=== PATIENT | male | born 1980 | race Caucasian/White ===

== ENCOUNTER 2016-12-06 07:02 | Emergency (ER) | payer BC ==
[2016-12-06 07:17] VITALS: BP 129/78
--- NOTE | 2016-12-06 07:52 | UC ---
Tana Merlos Claudia, [facility] on 12/06/16 at 0713 . Throat Pain/Nasal Kin HPI - HPI Summary HPI Summary: In Room Note: 36 year old male presents to the [facility] with throat pain. He notes that it all began when his dentist noted a"spot" on his right tonsil about a month ago, then gradual onset of Sx about 1-2 weeks after. Pt notes constant irritation for the past several weeks. Pt notes the discomfort at 5/6-10. He states no aggravating factors but does note that the discomfort is alleviated with eating, tea/honey but the pain persists. Pt denies NVD, fever and chills. Pt also notes that he had GERD and thought the pain might be related so he started taking some Mylanta and it has not alleviated the Sx. Pt notes PMHx of tonsillitis. Nurse's Note: October WENT TO DENTIST WAS TOLD HAS SPOT ON RIGHT TONSIL. WEEK LATER WENT TO PCP, PCP VERIFIED SPOT BUT WASNT'T BOTHERSOME. A COUPLE DAYS LATER STARTED HURTING, AND HAS BEEN HURTING SINCE. PT STATES THROAT FEELS VERY "RAW". HAS APPOINTMENT IN DECEMBER WITH ENT. Note: Vital signs stable temp 99.9 Pulse 133. SBP 129. - History of Current Complaint Stated Complaint: SORE THROAT Hx Obtained From: Patient Onset/Duration: Gradual Onset, Lasting Weeks Pain Scale Used: 0-10 Numeric - 5/6-10 Cough: None Associated Signs & Symptoms: Negative: Fever - Allergies/Home Medications Allergies/Adverse Reactions: Allergies Allergy/AdvReac Type Severity Reaction Status Date / Time No Known Allergies Allergy Verified 10/21/13 07:11 Home Medications: Home Medications Ranitidine HCl [Zantac] 12/06/16 [History] PMH/Surg Hx/FS Hx/Imm Hx Previously Healthy: Yes Cardiovascular History Of: Denies: Hypertension, Myocardial Infarction - Surgical History Surgical History: Yes Surgery Procedure, Year, and Place: wisdom teeth - Family History Known Family History: Positive: Hypertension - Social History Occupation: Employed Full-time Lives: With Family Alcohol Use: Occasionally Substance Use Type: None Smoking Status (MU): Never Smoked Tobacco - Immunization History Most Recent Influenza Vaccination: May 2013 Review of Systems Constitutional: Negative, Other - NO FEVER CHILLS Skin: Negative Eyes: Negative ENT: Sore Throat Respiratory: Negative Cardiovascular: Negative Gastrointestinal: Negative, Other - NO NVD Genitourinary: Negative Motor: Negative Neurovascular: Negative Musculoskeletal: Negative Neurological: Negative Psychological: Negative All Other Systems Reviewed And Are Negative: Yes Physical Exam Triage Information Reviewed: Yes Vital Signs: Initial Vital Signs Temp 99.9 F 12/06/16 07:11 Pulse 133 12/06/16 07:11 Resp 18 12/06/16 07:11 BP 129/78 12/06/16 07:11 Pulse Ox 100 12/06/16 07:11 Vital Signs Reviewed: Yes - Additional Comments Appearance: well-appearing, no pain distress, well-nourished Eyes: Conjunctiva clear ENT: Hearing grossly normal, pharynx normal, TMs normal, (-) muffled/hoarse voice PETECHIAE ON SOFT PALATE, DIFFUSE ERYTHEMA, LOCALIZED EXUDATE ON RIGHT TONSIL Neck: Supple, no lymphadenopathy Resp: Chest non-tender, lungs clear, normal breath sounds, no respiratory distress Cardio: RRR, No murmur Abd: nontender, no organomegaly, soft Bowel: Present Musc: Strength intact, CONTRERAS Neuro: Alert Psych: Age appropriate behavior Skin: (-) rashes Throat Pain/Nasal Course/Dx - Course Course Of Treatment: Healthy Pt with sore throat for pain for month. History of tonsillitis. His rapid strep was negative. Although his throat exam suggested tonsillitis, and pharyngitis, discussed course of treatment with Pt and the possibility of acid reflux. The following plan was worked out; he will start on amoxicillin follow-up with ENT add Mylanta and viscous lidocaine to try to alleviate the throat discomfort, as well as frequent tea, honey and lozenges. Dx : Pharyngitis, Tonsillitis. Medications have been included in the original chart and reviewed. Patient has been given an antibiotic because of increased consistent with health history.The risks and benefits of antibiotic treatment have been discussed and patient has voiced understanding of these risks including the possibility of developing clostridium deficile enterocolitis. - Differential Dx/Diagnosis Provider Diagnoses: Pharyngitis, Tonsillitis Discharge - Discharge Plan Condition: Stable Disposition: HOME Prescriptions: Amoxicillin (*) [Amoxicillin 875 MG (*)] 875 mg PO BID #10 tab MDD 2 Lidocaine 2% VISCOUS* [Xylocaine 2% Viscous*] 15 ml SWISH SPIT Q4H PRN #1 btl MDD 6 times a day PRN Reason: Sore Throat Patient Education Materials: Tonsillitis (ED) Referrals: Adalberto Austin MD [Primary Care Provider] - Additional Instructions: WE DISCUSSED: 1. You have tonsillitis. Your strep was negative/ 2. Begin amoxicillin for 5 days, twice a day. 3. Viscous lidocaine, place on area of discomfort. 4. Add mylanta after meals; continue Zantac. 5. Follow up ENT. 6. Also: KEEP THROAT MOIST WITH LOZENGES; TEA AND HONEY. USE WARM WATER GARGLES 3-4 TIMES A DAY. CEPASTAT LOZENGES FOR MODERATE PAIN. USEFUL HOME REMEDIES: WARM WATER GARGLES, WITH TSP OF SALT PER 8 OUNCES OF WATER, GARGLE FOR A FEW SECONDS AND SPIT OUT; GARGLE AND SPIT OUT; EVERY THREE HOURS. AND/OR: WARM WATER OR TEA, HONEY AND LEMON; 2-3 CUPS A DAY. FOLLOW UP IN 10 DAYS NEEDED. SOONER IF INCREASED PAIN, TEMPERATURE, DIFFICULTY BREATHING OR SWALLOWING. The documentation as recorded by the Tana ortiz Claudia accurately reflects the service I personally performed and the decisions made by , Iain Chapa MD.
== END 2016-12-06 07:55 | disposition home or self-care (01) ==
LOC: UCEAST 07:02
DX: J03.90 Acute tonsillitis, unspecified (principal)
CPT/HCPCS: 87651; 99212; G0463

== ENCOUNTER 2016-12-07 07:06 | Emergency (ER) | payer BC ==
[2016-12-07] MEDS ORDERED: NS 0.9% 1000 ML* 1,000 ML BOLUS ONE (07:35)
--- NOTE | 2016-12-07 07:43 | UC ---
Throat Pain/Nasal Kin HPI - HPI Summary HPI Summary: 36 yo male with sore throat for about 2 weeks feel deep-points towards midline neck at level of thyroid feels better to swallow pain has progessively worsened and is now 8/10 last pm developed a fever wt loss - History of Current Complaint Chief Complaint: UCGeneralIllness Stated Complaint: SORE THROAT Time Seen by Provider: 12/07/16 07:15 Hx Obtained From: Patient Onset/Duration: Gradual Onset, Lasting Weeks Severity: Severe Pain Intensity: 8 Pain Scale Used: 0-10 Numeric Cough: None Associated Signs & Symptoms: Positive: Hoarseness - started today, Fever - Epiglottits Risk Factors Epiglottis Risk Factors: Negative - Allergies/Home Medications Allergies/Adverse Reactions: Allergies Allergy/AdvReac Type Severity Reaction Status Date / Time No Known Allergies Allergy Verified 12/07/16 08:19 Home Medications: Home Medications Tramadol HCl [Ultram] 12/07/16 [History] PMH/Surg Hx/FS Hx/Imm Hx Previously Healthy: Yes Cardiovascular History Of: Denies: Hypertension, Myocardial Infarction - Surgical History Surgical History: Yes Surgery Procedure, Year, and Place: wisdom teeth - Family History Known Family History: Positive: Hypertension - Social History Alcohol Use: Occasionally Substance Use Type: None Smoking Status (MU): Never Smoked Tobacco - Immunization History Most Recent Influenza Vaccination: May 2013 Review of Systems Constitutional: Fever, Chills, Fatigue Skin: Negative Eyes: Negative ENT: Sore Throat Respiratory: Negative Cardiovascular: Negative Gastrointestinal: Negative Genitourinary: Negative Motor: Negative Neurovascular: Negative Musculoskeletal: Negative Neurological: Weakness Psychological: Negative All Other Systems Reviewed And Are Negative: Yes Physical Exam Triage Information Reviewed: Yes Appearance: Well-Appearing, No Pain Distress, Well-Nourished Vital Signs: Initial Vital Signs Temp 102 F 12/07/16 07:16 Pulse 119 12/07/16 07:16 Resp 18 12/07/16 07:16 BP 118/81 12/07/16 07:16 Pulse Ox 100 12/07/16 07:16 Vital Signs Reviewed: Yes Eyes: Positive: Conjunctiva Clear ENT: Positive: Hearing grossly normal, Pharyngeal erythema, Tonsillar swelling - slightly enlarged right tonsil, Other: - hoarse. Negative: Tonsillar exudate , Trismus Dental Exam: Normal Neck: Positive: Supple, Nontender, Enlarged Nodes @ - small right cervical nodes Respiratory: Positive: Lungs clear, Normal breath sounds, No respiratory distress, No accessory muscle use Cardiovascular: Positive: RRR, No Murmur, Tachycardia Musculoskeletal: Positive: ROM Intact, No Edema Neurological: Positive: Alert Psychological Exam: Normal Psychological: Positive: Normal Response To Family Skin Exam: Normal Throat Pain/Nasal Course/Dx - Course Course Of Treatment: CT neg. feels better at D/C - Differential Dx/Diagnosis Provider Diagnoses: right sided tonsilar enlargement. fever. hoarseness ?GERD Discharge - Discharge Plan Condition: Stable Disposition: HOME Prescriptions: Omeprazole CAP* [Prilosec CAP* 20 MG] 20 mg PO BEDTIME #14 cap.dr Referrals: Adalberto Austin MD [Primary Care Provider] - Additional Instructions: continue Amoxicillin recheck for new or worsening symptoms thyroid test and blood count pending recheck in 2 days if still febrile tylenol for fever or pain CT was normal hoarseness may be due to GERD keep ENT appt
[2016-12-07] MEDS ORDERED: Acetaminophen TAB* 325 MG PO ONE (07:47)
[2016-12-07] MEDS ORDERED: Iohexol 300* (CONTRAST) 10 ML SDV IV ONE (08:26)
[2016-12-07 09:07] VITALS: BP 132/67
--- NOTE | 2016-12-07 09:30 | RAD ---
HISTORY: Neck pain, fever COMPARISONS: None TECHNIQUE: Multiple contiguous axial CT scans were obtained of the neck after the administration of nonionic intravenous contrast, with coronal and sagittal multiplanar reformations. FINDINGS: BRAIN AND ORBITS: The visualized brain and orbits are normal. PARANASAL SINUSES: The visualized paranasal sinuses are clear. SALIVARY GLANDS: The parotid glands, submandibular glands, sublingual glands are normal. NASAL CAVITY/NASOPHARYNX: The nasal cavity and nasopharynx are normal. ORAL CAVITY/OROPHARYNX: The oral cavity is obscured by streak artifact from dental amalgam. The visualized oral cavity and oropharynx are unremarkable. LARYNGEAL APPARATUS/HYPOPHARYNX: There is no loculated fluid collection. UPPER AIRWAY/UPPER ESOPHAGUS: The visualized upper airway and esophagus are normal. LUNG APICES: There is a scoliotic curvature of the spine. THYROID GLAND: The thyroid gland is normal. LYMPH NODES: There is no lymphadenopathy by size criteria. VASCULATURE: The vasculature is unremarkable. BONES AND SOFT TISSUES: No bone or soft tissue abnormalities are noted. OTHER: None. IMPRESSION: SCOLIOSIS, OTHERWISE UNREMARKABLE CT OF THE NECK. THERE IS NO LOCULATED FLUID COLLECTION TO SUGGEST ABSCESS. THERE IS NO LYMPHADENOPATHY BY SIZE CRITERIA.
[2016-12-07] MEDS ORDERED: cefTRIAXone VIAL(*) 1,000 MG in NS 0.9% 50 ML* 50 ML IVPB ONE (09:44)
[2016-12-07] MEDS ORDERED: cefTRIAXone VIAL(*) 1,000 MG VIAL ONE (10:10)
[2016-12-07 12:52] LABS: Hematocrit 48 % (42-52); Mean Corpuscular HGB Conc 34 g/dl (31-36); Mean Corpuscular Hemoglobin 30 pg (27-31); Mean Corpuscular Volume 90 fL (80-94); Mean Platelet Volume 9 um3 (7.4-10.4); Red Blood Count 5.29 10^6/ul (4.0-5.4); Red Cell Distribution Width 13 % (10.5-15); White Blood Count 5.7 10^3/ul (3.5-10.8)
== END 2016-12-07 10:36 | disposition home or self-care (01) ==
LOC: UCEAST 07:06
DX: J03.90 Acute tonsillitis, unspecified (principal); K21.9 Gastro-esophageal reflux disease without esophagitis; R00.0 Tachycardia, unspecified
CPT/HCPCS: 36415; 70491; 84443; 85025; 96360; 96365; 99212; A9270-GY; G0463; J0696; Q9967

== ENCOUNTER 2016-12-09 07:02 | Emergency (ER) | payer BC ==
[2016-12-09 07:13] VITALS: BP 146/84
--- NOTE | 2016-12-09 07:46 | UC ---
Carlene Merlos SooYoung, scrib[facility] for [facility] on 12/09/16 at 0723 . HPI Febrile Illness - HPI Summary HPI Summary: IN-ROOM NOTE: A 36 y/o M presents to [facility] with c/o fever this AM of 100.6 F and took some Tylenol. Associated sx: productive cough. Denies n/v/d. Pt has been seen on and 12/07/2016 for fever and throat pain. Prior this week, Tmax 102 F. He notes his throat pain is greatly reduced. Pt has not been to work for past two days. Pt is still taking his Amoxicillin. NOTE: Vital signs stable. Temp 98.9. Pulse noted at 100. BP at 146/84. Pulse ox: 98. Pt is not on anti-HTN medications, but does report being anxious when being seen by doctor. This pt was seen by me on 12/06/2016 with dx: pharyngitis and started with Amoxicillin, rapid strep neg. Was seen by Dr. Escudero 12/07/2016, CT scan showed no abscess or abnormality. Returns today with decreased pain but c/o continued elevated temperature. Pt is on Ameprozole with possible GERD and Amoxicillin. NURSE'S NOTE: pt states had fever again thia am 100.6 and took tylenol throat is improved and also taking cold and flu pt sates increase cough also seen here on 12/06 and 12/07 - History of Current Complaint Hx Obtained From: Patient, Medical Records Onset/Duration: Started Hours Ago, Still Present Timing: Constant Initial Severity: Mild Current Severity: Mild Pain Intensity: 0 Pain Scale Used: 0-10 Numeric Alleviating Factors: OTC Medicine - TYLENOL REDUCED FEVER Associated Signs and Symptoms: Cough - productive - Allergy/Home Medications Allergies/Adverse Reactions: Allergies Allergy/AdvReac Type Severity Reaction Status Date / Time No Known Allergies Allergy Verified 12/07/16 08:19 Home Medications: Home Medications [id number] [COLD & FLU MULTI-SYMPTOM (Liquid)] 12/09/16 [ History] PMH/Surg Hx/FS Hx/Imm Hx Previously Healthy: Yes Endocrine/Hematology History: Denies: Hx Diabetes, Hx Thyroid Disease Cardiovascular History: Denies: Hx Hypertension, Hx Myocardial Infarction Respiratory History: Denies: Hx Asthma, Hx Chronic Obstructive Pulmonary Disease (COPD) GI History: Denies: Hx Ulcer History: Denies: Hx Dialysis, Hx Renal Disease - Surgical History Surgery Procedure, Year, and Place: wisdom teeth Infectious Disease History: No Infectious Disease History: Denies: Hx Clostridium Difficile, Hx Hepatitis, Hx Human Immunodeficiency Virus (HIV), Hx of Known/Suspected MRSA, Hx Shingles, Hx Tuberculosis, Hx Known/ Suspected VRE, Hx Known/Suspected VRSA, History Other Infectious Disease, Traveled Outside the [place] in Last 30 Days - Family History Known Family History: Positive: Hypertension - father - Social History Occupation: Employed Full-time Lives: With Family Alcohol Use: Occasionally Hx Substance Use: No Substance Use Type: Reports: None Hx Tobacco Use: No Smoking Status (MU): Never Smoked Tobacco Review of Systems Constitutional: Fever - 100.6 F [employer] Respiratory: Cough - productive Gastrointestinal: Negative All Other Systems Reviewed And Are Negative: Yes Physical Exam Triage Information Reviewed: Yes Appearance: Well-Appearing, No Pain Distress, Well-Nourished Vital Signs: Initial Vital Signs Temp 98.9 F 12/09/16 07:04 Pulse 100 12/09/16 07:04 Resp 16 12/09/16 07:04 BP 146/84 12/09/16 07:04 Pulse Ox 98 12/09/16 07:04 Vital Signs Reviewed: Yes Eyes: Positive: Conjunctiva Clear ENT: Positive: Hearing grossly normal, Pharynx normal, TMs normal, Other: - POS : SMALL WHITE PATCH ON SUPERIOR POLE OF R TONSIL. PT REPORTS DISCOMFORT AT APPROX CRICOID CARTILEGE. THIS AREA IS NOT TENDER WITH PALPATION OR MOVEMENT.. Negative: Tonsillar swelling, Tonsillar exudate, Muffled/hoarse voice Neck: Positive: Supple, No Lymphadenopathy, Other: - POS: NO CERVICAL ADENOPATHY Respiratory: Positive: Chest non-tender, Lungs clear, Normal breath sounds, No respiratory distress Cardiovascular: Positive: RRR, No Murmur Abdomen Description: Positive: Nontender, No Organomegaly, Soft Bowel Sounds: Positive: Present Musculoskeletal: Positive: Strength Intact, Other: - CONTRERAS Neurological: Positive: Alert Psychological: Positive: Age Appropriate Behavior Skin: Negative: rashes Course/Dx - Course Course Of Treatment: DISCUSSED WITH PT AT LENGTH, THAT THIS COULD HAVE BEEN VIRAL ILLNESS INCLUDING INFLUENZA AND THAT HE APPEARS TO BE IMPROVING. RECOMMENDED HE F/U WITH ENT FOR EVAL OF ESOPHAGUS, CONTINUE WITH ZANTAC, OMEPRAZOLE, MYLANTA IN CASE HES HAVING REFLUX. HIS EXAMINATION WAS ESSENTIALLY UNREMARKABLE. HE WILL FINISH HIS AMOXICILLIN AND RETURN TO WORK IN TWO DAYS. Hypertensive BP reading of 146/84. F/U WITH PCP within 4 wks TO RECHECK BP. - Diagnoses Clinic Provider Diagnoses: 1. RESOLVING NECK DISCOMFORT, POSSIBLE GERD. 2. RESOLVING URI, POSSIBLE VIRAL PHARYNGTITIS OR INFLUENZA. 3. COUGH, NML LUNG EXAM : RESOLVING URI. Discharge - Discharge Plan Condition: Stable Disposition: HOME Patient Education Materials: Pharyngitis (ED), Gastroesophageal Reflux Disease (ED) Referrals: Adalberto Austin MD [Primary Care Provider] - Additional Instructions: WE DISCUSSED: FINISH YOUR CURRENT COURSE OF AMOXICILLIN. Continue medication for GERD. SEE YOUR ENT DOCTOR SCHEDULED, 12/25/2016. Hypertensive BP reading of X; follow up with PCP within 4 weeks to recheck blood pressure. Your final diagnosis could be pharyngitis (viral), upper respiratory infection, influenza and esophageal irritation. In any case, you are improving both in terms of your discomfort and your temperature. Return to work in two days. Rest, fluids, call or return if you have any questions or concerns. The documentation as recorded by the Carlene ortiz SooYoung accurately reflects the service I personally performed and the decisions made by , Iain Chapa MD.
== END 2016-12-09 07:53 | disposition home or self-care (01) ==
LOC: UCEAST 07:02
DX: M54.2 Cervicalgia (principal); J02.8 Acute pharyngitis due to other specified organisms
CPT/HCPCS: 99211; G0463

== ENCOUNTER 2017-03-25 20:22 | Emergency (ER) | payer BC ==
--- NOTE | 2017-03-25 21:27 | ED ---
Brie Merlos Alok, scribed for Iain Barker MD on 03/25/17 at 2125 . HPI Chest Pain - HPI Summary HPI Summary: 36M presents to the ED with sharp, constant CP at the upper sternal since 3 days ago. Pt states that this CP is worse with palpation, movement, deep breaths , cough, and weight lifting and unaffected by cardiovascular exercise. Pt has been taking ibuprofen for pain every 4 hours yesterday and the day before which helped alleviate the CP somewhat but never entirely. Pt states he has never had this CP before. Pt denies tobacco use. - History of Current Complaint Chief Complaint: EDChestPainROMI Time Seen by Provider: 03/25/17 21:11 Hx Obtained From: Patient Onset/Duration: Started Days Ago, Atraumatic, Still Present Timing: Constant Initial Severity: Moderate Current Severity: Moderate Pain Intensity: 3 Pain Scale Used: 0-10 Numeric Chest Pain Location: Discrete at:, Upper Sternal Character: Sharp/Stabbing Aggravating Factor(s): Movement, Deep Breaths, Other: - weight lifting, cough, palpation Alleviating Factor(s): OTC Meds Associated Signs and Symptoms: Positive: Chest Pain. Negative: Fever - Allergy/Home Medications Allergies/Adverse Reactions: Allergies Allergy/AdvReac Type Severity Reaction Status Date / Time No Known Allergies Allergy Verified 12/07/16 08:19 PMH/Surg Hx/FS Hx/Imm Hx Endocrine/Hematology History: Denies: Hx Diabetes, Hx Thyroid Disease Cardiovascular History: Denies: Hx Hypertension, Hx Myocardial Infarction Respiratory History: Denies: Hx Asthma, Hx Chronic Obstructive Pulmonary Disease (COPD) GI History: Denies: Hx Ulcer History: Denies: Hx Dialysis, Hx Renal Disease - Surgical History Surgery Procedure, Year, and Place: wisdom teeth Infectious Disease History: No Infectious Disease History: Denies: Hx Clostridium Difficile, Hx Hepatitis, Hx Human Immunodeficiency Virus (HIV), Hx of Known/Suspected MRSA, Hx Shingles, Hx Tuberculosis, Hx Known/ Suspected VRE, Hx Known/Suspected VRSA, History Other Infectious Disease, Traveled Outside the [place] in Last 30 Days - Family History Known Family History: Positive: Hypertension - father - Social History Occupation: Employed Full-time Lives: With Family Alcohol Use: Occasionally Hx Substance Use: No Substance Use Type: Reports: None Hx Tobacco Use: No Smoking Status (MU): Former Smoker Review of Systems Negative: Fever Positive: Chest Pain All Other Systems Reviewed And Are Negative: Yes Physical Exam Triage Information Reviewed: Yes Vital Signs On Initial Exam: Initial Vitals Temp Pulse Resp BP Pulse Ox 99.1 F 94 20 157/90 99 03/25/17 20:25 03/25/17 20:25 03/25/17 20:25 03/25/17 20:25 03/25/17 20:25 Vital Signs Reviewed: Yes Appearance: Positive: Well-Appearing, No Pain Distress, Thin Skin: Positive: Warm Head/Face: Positive: Normal Head/Face Inspection Eyes: Positive: MARKELL ENT: Positive: Hearing grossly normal Neck: Positive: Supple Respiratory/Lung Sounds: Positive: Clear to Auscultation, Breath Sounds Present Cardiovascular: Positive: RRR Abdomen Description: Positive: Nontender, Soft Bowel Sounds: Positive: Present Neurological: Positive: Alert, Oriented to Person Place, Time Psychiatric: Positive: Affect/Mood Appropriate - [place] Coma Scale Coma Scale Total: 15 Diagnostics - Vital Signs Vital Signs Temp Pulse Resp BP Pulse Ox 03/25/17 21:00 78 15 122/78 99 03/25/17 20:50 86 16 98 03/25/17 20:48 99.3 F 77 17 140/82 100 03/25/17 20:47 140/82 03/25/17 20:25 99.1 F 94 20 157/90 99 - Laboratory Lab Statement: Any lab studies that have been ordered have been reviewed, and results considered in the medical decision making process. - Radiology CXR Xray Interpretation: Positive (See Comments) - IMPRESSION: HYPERINFLATION. NO ACTIVE DISEASE. Radiology Interpretation Completed By: Radiologist - EKG 2031 Cardiac Rate: NL - 86 bpm EKG Rhythm: Sinus Rhythm Re-Evaluation - Re-Evaluation First Eval Re-Evaluation Time: 21:56 Change: Improved Comment: Discussed pt CXR results Chest Pain Course/Dx - Diagnoses Provider Diagnoses: Pleurisy Discharge - Discharge Plan Condition: Improved Disposition: HOME Patient Education Materials: Pleurisy (ED) Referrals: Adalberto Austin MD [Primary Care Provider] - The documentation as recorded by the Brie ortiz Alok accurately reflects the service I personally performed and the decisions made by me, Iain Barker MD.
--- NOTE | 2017-03-25 21:48 | RAD ---
INDICATION: Chest pain COMPARISON: None TECHNIQUE: PA and lateral dual-energy views were obtained. FINDINGS: Bones/Soft Tissues: There are no acute bony findings. Cardiomediastinal: The cardiomediastinal silhouette is normal. Lungs: There are no infiltrates. There is hyperinflation. Pleura: There are no pleural effusions. Other: None IMPRESSION: HYPERINFLATION. NO ACTIVE DISEASE.
[2017-03-25 22:10] VITALS: BP 114/70
== END 2017-03-25 22:10 | disposition home or self-care (01) ==
LOC: ED 20:22
DX: R09.1 Pleurisy (principal); Z87.891 Personal history of nicotine dependence
CPT/HCPCS: 71020; 93005; 99282

== ENCOUNTER 2018-10-09 08:09 | Emergency (ER) | payer BC ==
[2018-10-09 09:59] LABS: Influenza A Molecular POSITIVE (Negative)
--- NOTE | 2018-10-09 10:11 | UC ---
FLU HPI - HPI Summary HPI Summary: 38 y/o male presents to the urgent care c/o temporal LOZADA, body aches, fever for the past 2 days. Pt reports then nasal congestion d w/ yellowish nasal discharge developed. He just arrived from [facility] yesterday after a week of vacation. Pt states pain is 6/10. He states his BP is usually elevated when he goes to the Dr's office. Pt states no GI symptoms. He has been taking cough and OTC medication to alleviate symptoms. His cough is intermittent w/ clear sputum and with a burning sensation. Pt states fever started last night. He didn't take anything medications today because he didn't want to mask his symptoms. Pt denies dizziness, photophobia, night sweats or rigor, SOB, chest pain, palpitations, abdominal pain, N/v/D or urinary symptoms. - History of Current Complaint Chief Complaint: UCRespiratory Stated Complaint: COUGH SINUS ISSUE CHILLS Time Seen by Provider: 10/09/18 10:09 Hx Obtained From: Patient Onset/Duration: Gradual Onset, Lasting Days - 2 days Pain Intensity: 0 - Allergy/Home Medications Allergies/Adverse Reactions: Allergies Allergy/AdvReac Type Severity Reaction Status Date / Time No Known Allergies Allergy Verified 12/07/16 08:19 Home Medications: Home Medications guaiFENesin [Cough Syrup] 100 mg PO SEE INSTRUCTIONS 10/09/18 [History Confirmed 10/09/18] PMH/Surg Hx/FS Hx/Imm Hx - Surgical History Surgical History: Yes Surgery Procedure, Year, and Place: wisdom teeth - Family History Known Family History: Positive: Hypertension - father - Social History Alcohol Use: Occasionally Substance Use Type: None Smoking Status (MU): Former Smoker - Immunization History Most Recent Influenza Vaccination: May 2013 Most Recent Tetanus Shot: utd Physical Exam - Summary Physical Exam Summary: VITAL SIGNS: Reviewed. GENERAL: Patient is a well developed and nourished male who is sitting comfortable in the examining table. Patient is not in any acute respiratory distress. HEAD AND FACE: No signs of trauma. No ecchymosis, hematomas or skull depressions. No sinus tenderness. EYES: PERRLA, EOMI x 2, No injected conjunctiva, no nystagmus. No photophobia. EARS: Hearing grossly intact. Ear canals and tympanic membranes are within normal limits. Nose: edematous and erythematous nasal mucosa w/ clear nasal discharge. MOUTH: Positive no erythema, no tonsillar enlargement. Uvula in midline. NECK: Supple, trachea is midline, Positive anterior cervical lymphadenopathy, no JVD, no carotid bruit, no c-spine tenderness, neck with full ROM. No meningeal signs, no Kernig's or brudzinskis signs. CHEST: Symmetric, no tenderness at palpation LUNGS: Clear to auscultation bilaterally. No wheezing or crackles. CVS: Regular rate and rhythm, S1 and S2 present, no murmurs or gallops appreciated. ABDOMEN: Soft, non-tender. No signs of distention. No rebound no guarding, and no masses palpated. Bowel sounds are normal. EXTREMITIES: FROM in all major joints, no edema, no cyanosis or clubbing. NEURO: Alert and oriented x 3. No acute neurological deficits. Speech is normal and follows commands. SKIN: Dry and warm Triage Information Reviewed: Yes Vital Signs: Initial Vital Signs Temp 100.8 F 10/09/18 08:31 Pulse 110 10/09/18 08:31 Resp 20 10/09/18 08:31 BP 176/88 10/09/18 08:31 Pulse Ox 98 10/09/18 08:31 Flu Course/Dx - Course Course Of Treatment: 38 y/o male presents to the urgent care c/o temporal LOZADA, body aches, fever for the past 2 days. Pt reports then nasal congestion d w/ yellowish nasal discharge developed. He just arrived from [facility] yesterday after a week of vacation. Pt states pain is 6/10. He states his BP is usually elevated when he goes to the Dr's office. Pt states no GI symptoms. He has been taking cough and OTC medication to alleviate symptoms. His cough is intermittent w/ clear sputum and with a burning sensation. Pt states fever started last night. He didn't take anything medications today because he didn't want to mask his symptoms. Pt denies dizziness, photophobia, night sweats or rigor, SOB, chest pain, palpitations, abdominal pain, N/v/D or urinary symptoms. Hx obtained. Pt is febrile and tachycardic w/ BP elevated. at this moment. Pt is not diaphoretic. On PE Pt with a URI on examiantion, Influenza A& B ordered: Positive influenza A. Pt given at the clinic Ibuprofen 800mg PO for fever. 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 Charge Nurse Rick also notified and we all agreed that Pt's symptoms is due to Influenza A. Pt observed for 1 hr and HR decrease - Differential Dx/Diagnosis Differential Diagnosis/HQI/PQRI: Bronchitis, Influenza, Pneumonia, Upper Respiratory Infection Provider Diagnosis: Influenza A, Fever Discharge - Sign-Out/Discharge Documenting (check all that apply): Patient Departure - D/c home All imaging exams completed and their final reports reviewed: No Studies - Discharge Plan Condition: Stable Disposition: HOME Prescriptions: Oseltamivir CAP* [Tamiflu CAP*] 75 mg PO BID #10 cap Patient Education Materials: Influenza (ED) Forms: *Work Release Referrals: Edith QUINTEROS,Roxanna Crisostomo [Primary Care Provider] - 2 Days Additional Instructions: 1- Please take the full course of the antiviral to avoid resistance. Encourage hand washing and wear a mask to avoid spreading. 2-Please take Ibuprofen PO or Tylenol PO q6-8hrs after meals as instructed after meals for fever, LOZADA and sore throat. Increase fluid intake, eat well, rest and avoid strenuous exercise. 3-If symptoms worsen despite medications and fever is not control and you develop neck pain, LOZADA is severe , Dizziness, or Nausea vomiting or diarrhea etc pleas go immediately ot the ER for further evaluation and treatment. Otherwise f/u with you rPCP in 2-3 day for re-check to make sure symptoms are improving 4-Your BP is elevated today. Please take your BP medications and decrease salt in your diet, monitor BP and if it continues to be elevated please f/u with your PCP for further management. If you develop chest pain, dizziness, visual disturbances, SOB, or severe LOZADA please go immediately to the ER for further management - Billing Disposition and Condition Condition: STABLE Disposition: Home
[2018-10-09] MEDS ORDERED: Ibuprofen TAB* 400 MG PO ONE (10:21)
[2018-10-09 11:02] VITALS: BP 137/81
== END 2018-10-09 11:37 | disposition home or self-care (01) ==
LOC: UCEAST 08:09
DX: J10.1 Influenza due to other identified influenza virus with other respiratory manifestations (principal); R50.9 Fever, unspecified; R00.0 Tachycardia, unspecified; Z87.891 Personal history of nicotine dependence
CPT/HCPCS: 99212; A9270-GY; G0463

== ENCOUNTER 2018-11-15 08:22 | Emergency (ER) | payer BC ==
[2018-11-15 08:27] VITALS: BP 129/73
--- NOTE | 2018-11-15 08:30 | UC ---
UC General HPI - HPI Summary HPI Summary: Patient presents to urgent care stating last night he was at the gym and had sudden development of nausea and fatigue. Patient has not vomited but states he feels like he needs to patient denies fevers or chills. Patient denies abdominal pain. Patient did have 2 episodes of diarrhea nonbloody, nonblack. Patient denies chest pain or shortness of breath. 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 Patient was positive for approximately one month ago. Patient has not tried to eat or drink anything. Patient denies abdominal pain. No difficulty with urination. During evaluation patient with large volume nonbilious, nonbloody emesis. Patient's medications reviewed this visit. - History of Current Complaint Chief Complaint: UCGI Stated Complaint: ABDOMINAL COMPLAINT Hx Obtained From: Patient Onset/Duration: Sudden Onset Current Severity: None Pain Intensity: 0 - Allergy/Home Medications Allergies/Adverse Reactions: Allergies Allergy/AdvReac Type Severity Reaction Status Date / Time No Known Allergies Allergy Verified 11/15/18 08:27 Home Medications: Home Medications Multivitamin [Multivitamins] 1 cap PO 11/15/18 [History] PMH/Surg Hx/FS Hx/Imm Hx Previously Healthy: Yes - Surgical History Surgical History: Yes Surgery Procedure, Year, and Place: wisdom teeth - Family History Known Family History: Positive: Hypertension - father - Social History Occupation: Employed Full-time Lives: With Family Alcohol Use: Occasionally Substance Use Type: None Smoking Status (MU): Former Smoker - Immunization History Most Recent Influenza Vaccination: May 2013 Most Recent Tetanus Shot: utd Review of Systems All Other Systems Reviewed And Are Negative: Yes Constitutional: Positive: Fatigue Gastrointestinal: Positive: Diarrhea, Nausea Physical Exam - Summary Physical Exam Summary: Vital Signs Reviewed: Yes A+Ox3, tired appearing Eyes: Conjunctiva Clear, MARKELL. EOM intact and full ENT: Hearing grossly normal TM x 2 clear, mmoist, uvula midline, no exudate, no erythema Neck: Positive: Supple Respiratory: Positive: No respiratory distress, No accessory muscle use + CTA throughout no w/r Cardiovascular: RRR nl s1, s2 no m/r CBT <2 sec abd soft + BS nt/nd no guarding, no distension Musculoskeletal Exam: CONTRERAS x 4 without difficulty Strength Intact, ROM Intact Neurological: Positive: Alert, + sensation throughout Psychological: Positive: Normal Response To Family Skin: Positive: no rash, no ecchymosis Triage Information Reviewed: Yes Vital Signs: Initial Vital Signs Temp 98.3 F 11/15/18 08:26 Pulse 105 11/15/18 08:26 Resp 18 11/15/18 08:26 BP 129/73 11/15/18 08:26 Pulse Ox 100 11/15/18 08:26 Re-Evaluation - Re-Evaluation First Eval Re-Evaluation Time: 09:06 Change: Improved Comment: PT states feels markedly improved following emesis. abd soft Second Eval Re-Evaluation Time: 09:40 Change: Improved Comment: PT tolerating sips of water - will trial saltines. anticipate discharge with zofran. clearns to bland. work note. return precautions Course/Dx - Course Course Of Treatment: Patient presents to urgent care with 12 hours progressive nausea no vomiting and 2 episodes of diarrhea. Patient states he feels very tired. Patient was at the gym when all this started. Patient states no documented fevers. No chest pain shortness of breath or head congestion. 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 During history and exam patient had a large nonbilious nonbloody emesis. We'll place an IV give IV Zofran as well as Pepcid. Close reassessment. Patient comfortable in agreement with plan. - Diagnoses Provider Diagnosis: Nausea and vomiting Discharge - Sign-Out/Discharge Documenting (check all that apply): Patient Departure All imaging exams completed and their final reports reviewed: No Studies - Discharge Plan Condition: Stable Disposition: HOME Prescriptions: Ondansetron ODT TAB* [Zofran 4 MG Odt TAB*] 4 mg PO Q4H PRN #10 tab.odt PRN Reason: Nausea Patient Education Materials: Acute Nausea and Vomiting (ED) Forms: *Work Release Referrals: Edith QUINTEROS,Roxanna Crisostomo [Primary Care Provider] - Additional Instructions: - For the first 6 hours, eat and drink clears (water, pamela fabio, soup broth, jello, popsicles, Gatorade). If you tolerate this okay, add bland foods such as dry toast, scrambled eggs, crackers. Wait until you are feeling better for 24 hours before eating spicy food, acidic food, tomato based food, fried food. - Take medication as prescribed for nausea - Okay to take Tylenol every 6 hours as needed for pain or fever - get plenty of restful sleep - These infections are spread by oral secretions. Do not share eating or drinking utensils. Frequent hand washing is important. Clean items that may get your secretions on them such as cell phones, ipads, computer mouse, television remotes. - If you have increased pain, uncontrolled vomiting, fevers or any other concerns it is recommended you go to the emergency department for further evaluation and treatment - Billing Disposition and Condition Condition: STABLE Disposition: Home
[2018-11-15] MEDS ORDERED: Ondansetron INJ* 2 MG/ML VIAL IV ONE (08:38)
[2018-11-15] MEDS ORDERED: NS 0.9% 1000 ML** 1,000 ML IV ONE (08:38)
[2018-11-15] MEDS ORDERED: Famotidine IV* 10 MG/ML 2 ML (20 mg) IV SLOW PU ONE (08:39)
[2018-11-15 09:01] LABS: Influenza A Molecular NEGATIVE (Negative); Influenza B Molecular NEGATIVE (Negative)
== END 2018-11-15 09:55 | disposition home or self-care (01) ==
LOC: UCEAST 08:22
DX: R11.2 Nausea with vomiting, unspecified (principal); R53.83 Other fatigue; R19.7 Diarrhea, unspecified; Z87.891 Personal history of nicotine dependence
CPT/HCPCS: 96361; 96374; 96375; 99212; G0463; J2405